=== PATIENT | female | born 1990 | race Native Hawaiian/Other Pacific Islander ===

== ENCOUNTER 2017-11-27 19:48 | Emergency (ER) | payer OTHER ==
[~2017-11-27] VITALS: Ht 157.5 cm; Wt 56.7 kg
[2017-11-27 20:52] LABS: PLATELET COUNT 251 K/uL (152-353)
[2017-11-27 21:06] LABS: POTASSIUM 3.7 mmol/L (3.6-5.2)
[2017-11-27 22:05] VITALS: BP 121/68; TEMP 100.1
== END 2017-11-27 22:07 | disposition home or self-care (01) ==
LOC: ED 19:48
DX: J06.9 Acute upper respiratory infection, unspecified (principal); J20.9 Acute bronchitis, unspecified
CPT/HCPCS: 36415; 80053; 85027; 87081; 87804; 87880; 96372; 99283; J0696

== ENCOUNTER 2018-07-07 17:42 | Emergency (ER) | payer OTHER ==
[~2018-07-07] VITALS: Ht 157.5 cm; Wt 59.0 kg
[2018-07-07] MEDS ORDERED: MYDAYIS PO (17:55)
[2018-07-07 18:19] LABS: PLATELET COUNT 319 K/uL (152-353)
[2018-07-07 18:25] LABS: POTASSIUM 4.2 mmol/L (3.6-5.2)
[2018-07-07 19:29] VITALS: BP 126/766; TEMP 98.4
== END 2018-07-07 19:29 | disposition home or self-care (01) ==
LOC: ED 17:42
PROVIDERS: Emergency Medicine
DX: N73.9 Female pelvic inflammatory disease, unspecified (principal); N83.201 Unspecified ovarian cyst, right side
CPT/HCPCS: 80053; 81000; 81025; 85027; 99284; J1885

== ENCOUNTER 2019-05-15 13:16 | Emergency (ER) | payer OTHER ==
[~2019-05-15] VITALS: Ht 157.5 cm; Wt 61.2 kg
[~2019-05-15 13:16] MED LIST: MYDAYIS PO
[2019-05-15 13:56] LABS: PLATELET COUNT 269 K/uL (152-353)
[2019-05-15 14:06] LABS: POTASSIUM 4.4 mmol/L (3.6-5.2)
[2019-05-15 16:45] VITALS: BP 109/66; TEMP 98.1
== END 2019-05-15 16:45 | disposition home or self-care (01) ==
LOC: ED 13:16
PROVIDERS: Family Medicine
DX: N39.0 Urinary tract infection, site not specified (principal); N30.90 Cystitis, unspecified without hematuria
CPT/HCPCS: 80053; 81000; 85027; 87088; 96372; 99283; J0696; J1885